=== PATIENT | male | born 1960 | race Caucasian/White ===

== ENCOUNTER 2017-05-17 22:30 | Observation (INO) ==
[2017-05-17] MEDS ORDERED: 0.9 % Sodium Chloride 1,000 ML IVC ONE (22:37)
--- NOTE | 2017-05-17 22:49 | Emergency Department Note ---
Disposition Clinical Impression: Elevated serum creatinine Episode of syncope Qualifiers: Syncope type: unspecified Qualified Code(s): R55 - Syncope and collapse Hypotension Qualifiers: Hypotension type: unspecified hypotension type Qualified Code(s): I95.9 - Hypotension, unspecified Disposition: Admitted As Inpatient Condition: Good Referrals: Hazel Otero CNP [Primary Care Provider] - Forms: ED Satisfaction Letter Syncope HPI - General Chief Complaint: ED Syncope Stated Complaint: Passed Out Time Seen by Provider: 05/17/17 22:37 Source: patient, EMS Mode of arrival: EMS Limitations: no limitations Nursing Notes Reviewed: Yes Vital Signs Reviewed: Yes - History of Present Illness HPI Narrative: 56-year-old male history of diabetes who presents to the ER via EMS after syncopal episode. Patient states that he was active throughout the day at home getting prepared for a [employer] constitution party at his house. He states he did have a couple drinks but nothing significant. He states that he was outside and as he walked inside and it was home to make something to eat that he lost consciousness. He states that he did feel dizzy and lightheaded prior to the episode. Family reports they witnessed the event and that he went unresponsive and fell to the floor. They state that he was breathing but then did appear blue. No CPR was performed as the patient had a pulse. They state he came to and about a minute. He stated he was dazed after the event. No seizure-like activity noted. He states that he did have one episode where he fainted over the summer but attributed that to being outside all day in the sun. No history of syncopal episode workup. No history of cardiac disease. No other complaints. Pt Subjective Complaint: loss of consciousness Onset (ago): Just [employer] Number of episodes: 1 Duration: minutes(s) (1) Prodromal Symptoms: lightheaded Witnessed: yes - by other Context: during exertion Injuries Sustained Associated with Event: none Current Symptoms: back to baseline History: previous syncopal episode (Once this summer) Treatments prior to arrival: none Associated trauma secondary to event: No - Related Data Home Medications Medication Instructions Recorded Confirmed Metformin 01/13/16 Previous Rx's Medication Instructions Recorded Mupirocin [Bactroban Oint] 1 appl TP BID #1 tube 01/13/16 Sulfamethoxazole/Trimeth DS 1 each PO BID #14 tablet 01/13/16 [Bactrim DS] Allergies Allergy/AdvReac Type Severity Reaction Status Date / Time No Known Allergies Allergy Verified 01/13/16 14:27 All systems ED: reviewed and negative except as stated. Cardiovascular: Denies: chest pain, palpitations Respiratory: Denies: cough, dyspnea Gastrointestinal: Denies: abdominal pain, nausea, vomiting, diarrhea Musculoskeletal: Denies: neck pain Neurological: Denies: headache, numbness, paresthesias Past Medical History - Past Medical History Attestation: Yes The following information was validated with the patient. Source: patient Medical history: Reports: diabetes Surgical history: Reports: non-contributory Psychiatric history: Reports: no psych history - Social History Smoking Status: Never smoker Smokeless Tobacco Status: No Alcohol use: Reports: occasionally Drug use: Reports: marijuana Physical Exam - General Limitations: no limitations General appearance: alert, in no apparent distress - Head Head exam: atraumatic, normocephalic, normal inspection - Eye Eye exam: Present: normal appearance, EOMI - ENT ENT exam: normal exam - Neck Neck exam: Present: normal inspection, full ROM. Absent: tenderness - Chest Chest inspection: Present: normal inspection, symmetric chest wall rise - Respiratory Respiratory exam: Present: normal lung sounds bilaterally - Cardiovascular Cardiovascular exam: Present: regular rate, normal rhythm, normal heart sounds - Abdominal Exam Abdominal exam: Present: soft, Non-Tender. Absent: tenderness, distention, rigidity - Extremities Exam Extremities exam: Present: normal inspection, full ROM - Expanded Upper Extremity Exam Shoulder exam: Present: normal inspection, full ROM Arm exam: Present: normal inspection, full ROM Elbow exam: Present: normal inspection, full ROM Forearm/Wrist exam: Present: normal inspection, full ROM Hand exam: Present: normal inspection, full ROM Vascular exam: Normal: radial pulse - Expanded Lower Extremity Exam Hip/Pelvis exam: Present: normal inspection, full ROM Upper leg exam: Present: normal inspection, full ROM Knee exam: Present: normal inspection, full ROM Lower leg exam: Present: normal inspection, full ROM Ankle exam: Present: normal inspection, full ROM Foot/toe exam: Present: normal inspection, full ROM Neurovascular/Tendon exam: Absent: motor deficit, sensory deficit - Neurological Exam Neurological exam: Present: alert, CN II-XII intact. Absent: motor sensory deficit - Expanded Neurological Exam Speech: Present: fluid speech Cranial nerves: EOM function (II, III, IV, ): Normal, facial sensation (V): Normal, spinal accessory function (XI): Normal, tongue deviation (XII): Normal Motor strength - LUE: 5/5 Motor strength - RUE: 5/5 Motor strength - LLE: 5/5 Motor strength - RLE: 5/5 Sensory exam upper extremity: light touch: Normal Sensory exam lower extremity: light touch: Normal Coma Scale Eye Opening: Spontaneous Coma Scale Motor Response: Obeys Commands Coma Scale Verbal Response: Oriented Coma Scale Total: 15 - Psychiatric Psychiatric exam: Present: normal affect, normal mood - Skin Skin exam: Present: warm, dry, intact, normal color Course Course Narrative: Patient seen and examined. He was hypotensive in route with his first blood pressure here of 90 systolic. He is asymptomatic at this time and has returned to baseline. We will obtain a CT of his head as well as an EKG, chest x-ray as well as labs including troponin. He will require admission for syncopal workup. - Reevaluation(s) Reevaluation #1: I discussed results of imaging and lab work with patient and family. He is currently normotensive. He is agreeable to staying in the hospital. Vital Signs Temperature 97.4 F L 05/17/17 22:32 Pulse Rate 72 05/17/17 22:32 Respiratory Rate 18 05/17/17 22:32 Blood Pressure 93/58 05/17/17 22:32 O2 Sat by Pulse Oximetry 94 05/17/17 22:32 Temperature 97.4 F L 05/17/17 22:32 Pulse Rate 78 05/17/17 22:41 Respiratory Rate 18 05/17/17 22:41 Blood Pressure 101/70 05/17/17 22:41 O2 Sat by Pulse Oximetry 98 05/17/17 22:41 Oxygen Delivery Oxygen Delivery Room Air Syncope - MDM Narrative Medical decision making narrative: 56-year-old male presents to the ER with a chief complaint of a syncopal episode. Reports he was dizzy and lightheaded then lost consciousness. Family reports that he was unconscious for roughly 1 minute. No seizure-like activity. States he had an episode similar to this over the summer but was not evaluated. He has no history of cardiac disease. No history of DVT or PE. He was back to baseline once he arrived. He has been noted to be hypotensive prior to arrival as well as here. He is not on any antihypertensive medications. His EKG demonstrates no ischemic findings. Head CT and chest x- ray are unremarkable. Initial troponin within normal limits. We will admit the patient for evaluation for syncopal episode. - Lab Data Lab results reviewed: Yes I reviewed the patient's lab results. Result diagrams: 05/17/17 22:41 05/17/17 22:41 Lab Results 05/17/17 05/17/17 05/17/17 Range/Units 22:41 22:41 22:41 WBC 9.3 (4.3-11.1) K/mcL RBC 4.54 (4.19-5.50) M/mcL Hgb 14.1 (12.9-16.9) g/dL Hct 40.0 (37.5-50.1) % MCV 88.1 (83.0-100.0) fL MCH 31.1 (28.0-33.3) pg MCHC 35.3 (31.6-35.5) g/dL RDW 12.3 (11.5-14.5) % Plt Count 262 (140-400) K/mcL MPV 8.9 L (9.4-12.4) fL Immature Gran % 0.3 (0-4) % Seg Neutrophils % 67.4 % Lymphocytes % 24.1 % Monocytes % 7.1 % Eosinophils % 0.6 % Basophils % 0.5 % Neutrophils # 6.3 (1.6-8.9) K/mcL Lymphocytes # 2.2 (0.6-4.6) K/mcL Monocytes # 0.7 (0.0-1.3) K/mcL Eosinophils # 0.1 (0.0-0.6) K/mcL Basophils # 0.1 (0.0-0.2) K/mcL Sodium 140 (136-145) mEq/L Potassium 3.7 (3.5-4.5) mEq/L Chloride 103 (98-109) mEq/L Carbon Dioxide 23 (19-29) mEq/L BUN 22 (8-26) mg/dL Creatinine 1.44 H (0.72-1.25) mg/dL Est GFR ( Amer) > 60 (> 60) Est GFR (Non-Af Amer) 50 L (> 60) BUN/Creatinine Ratio 15 (6-26) Glucose 259 H (70-99) mg/dL Calculated Osmolality 302 H (280-300) Calcium 9.9 (8.6-10.8) mg/dL Troponin I 0.01 (0-0.03) ng/mL - Radiology Data Radiology results reviewed: Yes I reviewed the patient's radiology results. Chest X-Ray 05/17/17 22:37 IMPRESSION: No acute cardiopulmonary disease. D/ / Uriel Gutierrez MD / Uriel Gutierrez MD Interpreting Provider: Uriel Gutierrez MD Head CT 05/17/17 22:38 IMPRESSION: No acute intracranial abnormality. D/ / Chas Merino MD / Chas Merino MD Interpreting Provider: Chas Merino MD - EKG Data EKG attestation: Yes I reviewed and interpreted this EKG. EKG results narrative: EKG demonstrates sinus rhythm with first-degree AV block with a rate of 79 bpm. Prolonged IA interval of 215. Other intervals normal. Normal R-wave progression. T-wave inversion in lead 3. No gross ST elevations or depressions. No acute ischemic findings. No previous EKG for comparison. S.B.A.R. - S.B.A.RFlavia Situation: Demographics, MOA Background: Presenting Complaint, Relevant PMH, Meds, & Allergies Assessment: Vital Signs, Course and respsone to treatment, Exam Concerns, Patient/Family Expectation, Pertinant Lab Results, Outstanding Labs Recommendation: Barrier(s) to disposition, Recommendation based on pending studies, treatments, or consults S.B.A.RFlavia Report Given to: Dr. Ribera SFlaviaBFlaviaAYayo Repor Time: 01:12 Attestation Statement - Attestation Attestation: I examined this patient and my medical decision-making was reviewed with the Resident Physician. I agree with the documented findings, disposition and treatment plan as described except to the extent set forth below. Patient to ED with a syncopal episode. Patient was having a constitution party tonight. It was stabbing a couple of years. He had a syncopal episode on the kitchen floor. They state he was blue and barely breathing. Patient has recovered on arrival here. Noted to be hypotensive by medics. Exam shows an awake and alert in hemotympanum stable. Heart regular lungs clear. Plan. Unclear the cause of the patient's hypertension. He has been eating and drinking normally. Only had a couple of beers. No fever. Denies any chest or abdominal pain. Cardiac workup and likely observation.
[2017-05-17 22:50] LABS: Basophils # 0.1 K/mcL (0.0-0.2); Basophils % 0.5 %; Eosinophils # 0.1 K/mcL (0.0-0.6); Eosinophils % 0.6 %; Hemoglobin 14.1 g/dL (12.9-16.9); Immature Granulocytes % 0.3 % (0-4); Lymphocytes # 2.2 K/mcL (0.6-4.6); Lymphocytes % 24.1 %; Mean Corpuscular HGB Conc 35.3 g/dL (31.6-35.5); Mean Corpuscular Hemoglobin 31.1 pg (28.0-33.3); Mean Corpuscular Volume 88.1 fL (83.0-100.0); Mean Platelet Volume 8.9 fL (9.4-12.4); Monocytes # 0.7 K/mcL (0.0-1.3); Monocytes % 7.1 %; Neutrophils # 6.3 K/mcL (1.6-8.9); Platelet Count 262 K/mcL (140-400); Red Blood Count 4.54 M/mcL (4.19-5.50); Red Cell Distribution Width 12.3 % (11.5-14.5); Segmented Neutrophils % 67.4 %
[2017-05-17 23:03] LABS: BUN/Creatinine Ratio 15 (6-26); Blood Urea Nitrogen 22 mg/dL (8-26); Calcium 9.9 mg/dL (8.6-10.8); Carbon Dioxide 23 mEq/L (19-29); Chloride 103 mEq/L (98-109); Glucose 259 mg/dL (70-99); Osmolality,Calculated 302 (280-300); Potassium 3.7 mEq/L (3.5-4.5); Sodium 140 mEq/L (136-145); eGFR For African Americans > 60 (> 60); eGFR For Non-African Americans 50 (> 60)
[2017-05-18] MEDS ORDERED: *HR* HYDROcodone/Acet 5/325 mg TABLET PO PRN (01:40)
[2017-05-18] MEDS ORDERED: Naloxone 0.4 MG/ML INJ IVP PRN (01:40)
[2017-05-18] MEDS ORDERED: *HR* Promethazine 25 MG/ML VIAL IVP PRN (01:40)
[2017-05-18] MEDS ORDERED: Acetaminophen 325 MG TABLET PO PRN (01:40)
[2017-05-18] MEDS ORDERED: *HR* Morphine 2 MG/ML SYRINGE IVP PRN (01:40)
[2017-05-18] MEDS ORDERED: Ondansetron 4 MG/2 ML VIAL IVP PRN (01:40)
[2017-05-18] MEDS ORDERED: MOM Conc 10 ML UD.LIQ PO PRN (01:40)
[2017-05-18] MEDS ORDERED: *HR* Dextrose 50 % in Water (Syg) 50 ML SYRINGE IVP PRN (01:43)
[2017-05-18] MEDS ORDERED: Dextrose Gel 15 GM PO PRN ×2 (01:43)
[2017-05-18] MEDS ORDERED: D5% in Water 1,000 ML IVC PRN (01:43)
[2017-05-18] MEDS ORDERED: 0.9 % Sodium Chloride 1,000 ML IVC SCH (01:45)
[2017-05-18 02:28] LABS: Hemoglobin A1C 8.1 %
--- NOTE | 2017-05-18 02:29 | Internal Med History&Physical ---
Date of Encounter: 05/18/17 Time of Encounter: 02:00 Assessment and Plan (1) Episode of syncope Current visit: Yes Status: Acute Will place the pt into Tele for observation Pt's Syncope seems to be more like vasovagal reaction / ortho static however still need to r/o ACS vs Arrhythmia will place the pt on radiation monitor check serial troponin so far negative trop will start ASA will get 2 D echo and Carotid Doppler in AM Will check FLP in AM Will check Ortho stat vital Started on IV fluids Qualifiers: Syncope type: unspecified Qualified Code(s): R55 - Syncope and collapse (2) DM2 (diabetes mellitus, type 2) Current visit: Yes Status: Chronic will check HbA1C hold metformin due to LILIAM placed him on ISS Qualifiers: Qualified Code(s): E11.9 - Type 2 diabetes mellitus without complications (3) LILIAM (acute kidney injury) Current visit: Yes Status: Acute Due to dehydration started him on IV fluids cont monitoring Internal Medicine - H&P: HPI Chief complaint: Syncope Admitted From: Emergency Dept Plans for Post Hospital Care: Home History of present illness: Mr. Ortiz is a 56 year old male history of diabetes who presents to the ER via EMS after syncopal episode at home while he was at [employer]. He did mention he had a couple of beer in the evening aroung 4 PM and 2 more at night with a shot during the [employer] party. He also mentioned he did not eat anything all day long. He states that he was outside and as he walked inside and it was home to make something to eat then he lost consciousness and had a fall. He states that he did feel dizzy and lightheaded prior to the episode. Family reports they witnessed the event and that he went unresponsive and fell to the floor. They state that he was breathing but then did appear blue. No CPR was performed as the patient had a pulse. They state he came to and about a minute. He stated he was dazed after the event. No seizure-like activity noted. He states that he did have one episode where he fainted over the summer but attributed that to being outside all day in the sun. No history of syncopal episode workup. No history of cardiac disease. No other complaints. He denied any CP / SOB Past Med Surg Social Fam HX - Past Medical History Medical history: diabetes Psychiatric history: no psych history - Past Surgical History Surgical History: non-contributory - Social History Smoking Status: Never smoker Smokeless Tobacco Status: No Alcohol use: occasionally Drug use: marijuana - Family History Father Hx Family Cancer: Yes (bladder) Mother Hx Family Neurologic Disorders: Yes (cva) Internal Medicine - H&P: Meds metFORMIN [Glucophage] 1,000 mg PO BIDWM 01/13/16 [History] 3 Allergy/AdvReac Type Severity Reaction Status Date / Time No Known Allergies Allergy Verified 01/13/16 14:27 All Systems PM: A 10-system review of systems was performed and is negative for pertinent findings except as documented above in the HPI. Review of systems: All the systems are reviewed everything is benign except the systems and symptoms I mentioned in the history of present illness - Constitutional Vitals: Temp Pulse Resp BP Pulse Ox 97.4 F L 78 16 137/70 98 05/17/17 22:32 05/17/17 22:41 05/18/17 01:29 05/18/17 01:29 05/17/17 22:41 General appearance: Present: A&O X 3, no acute distress, answers questions appropriately - Head Head exam: Present: atraumatic, normal inspection - Respiratory Respiratory exam: Present: decreased breath sounds. Absent: rales, respiratory distress, rhonchi, wheezes - Cardiovascular Cardiovascular exam: Present: RRR, +S1, +S2. Absent: systolic murmur - GI/Abdominal GI/Abdominal exam: Present: normal bowel sounds, soft. Absent: distended, rebound, rigid, tenderness - Extremities Exam Extremities exam: Absent: calf tenderness, pedal edema, tenderness - Back Exam Back exam: Absent: CVA tenderness (L), CVA tenderness (R) - Neurological Exam Neurological exam: Present: alert, oriented X3, no focal deficits - Psychiatric Psychiatric exam: Present: normal affect, normal mood - Skin Skin exam: Present: dry, intact Internal Med - H&P Results - Labs CBC & Chem 7: 05/17/17 22:41 05/17/17 22:41
[2017-05-18 02:46] LABS: Basophils % 0.3 %; Eosinophils % 0.2 %; Hematocrit 37.6 % (37.5-50.1); Hemoglobin 13.2 g/dL (12.9-16.9); Immature Granulocytes % 0.3 % (0-4); Immature Platelets 1.4 % (1.1-6.1); Lymphocytes # 1.4 K/mcL (0.6-4.6); Lymphocytes % 11.5 %; Mean Corpuscular HGB Conc 35.1 g/dL (31.6-35.5); Mean Corpuscular Hemoglobin 31.2 pg (28.0-33.3); Mean Corpuscular Volume 88.9 fL (83.0-100.0); Mean Platelet Volume 8.8 fL (9.4-12.4); Monocytes # 0.8 K/mcL (0.0-1.3); Monocytes % 6.8 %; Neutrophils # 9.6 K/mcL (1.6-8.9); Platelet Count 262 K/mcL (140-400); Red Blood Count 4.23 M/mcL (4.19-5.50); Red Cell Distribution Width 12.5 % (11.5-14.5); Segmented Neutrophils % 80.9 %
[2017-05-18] MEDS ORDERED: Famotidine 20 MG TABLET PO SCH ×2 (02:51→09:00)
[2017-05-18 02:59] LABS: BUN/Creatinine Ratio 18 (6-26); Blood Urea Nitrogen 20 mg/dL (8-26); Calcium 9.2 mg/dL (8.6-10.8); Carbon Dioxide 24 mEq/L (19-29); Chloride 102 mEq/L (98-109); Chol/HDL Ratio 7.8 (0-4.9); Cholesterol 234 mg/dL (< 200); Glucose 280 mg/dL (70-99); HDL Cholesterol 30 mg/dL (40-59); LDL Cholesterol,Calculated 146 mg/dL (0-99); Magnesium 1.8 mg/dL (1.6-2.6); Osmolality,Calculated 299 (280-300); Potassium 4.2 mEq/L (3.5-4.5); Sodium 138 mEq/L (136-145); Triglycerides 292 mg/dL (< 150); eGFR For African Americans > 60 (> 60); eGFR For Non-African Americans > 60 (> 60)
--- NOTE | 2017-05-18 08:38 | Discharge Summary ---
Date of Encounter: 05/18/17 Time of Encounter: 08:35 - Discharge Diagnosis (1) Episode of syncope Priority: Primary Status: Acute Comments: Syncopal episode likely secondary to dehydration/vessel vagal episode Qualifiers: Syncope type: unspecified Qualified Code(s): R55 - Syncope and collapse (2) Dehydration Priority: Primary Status: Acute (3) Dyslipidemia Priority: Secondary Status: Acute (4) Elevated serum creatinine Priority: Secondary Status: Acute (5) Hypotension Priority: Secondary Status: Acute Qualifiers: Hypotension type: unspecified hypotension type Qualified Code(s): I95.9 - Hypotension, unspecified (6) DM2 (diabetes mellitus, type 2) Priority: Secondary Status: Chronic Qualifiers: Qualified Code(s): E11.9 - Type 2 diabetes mellitus without complications (7) LIILAM (acute kidney injury) Priority: Secondary Status: Acute Comments: Secondary to dehydration - Discharge Medications Prescriptions: Atorvastatin Calcium [Lipitor] 20 mg PO DAILY #30 tablet Home Medications: metFORMIN [Glucophage] 1,000 mg PO BIDWM 01/13/16 [History] Atorvastatin Calcium [Lipitor] 20 mg PO DAILY #30 tablet 05/18/17 [Rx] Allergies/Adverse Reactions: 3 Allergy/AdvReac Type Severity Reaction Status Date / Time No Known Allergies Allergy Verified 01/13/16 14:27 Procedures/tests Complete & Pending: Procedures Performed prior 72 hours Category Date Time Status EV echocardiogram Routine Y 05/18/17 08:34 Ordered Date of admission: 05/18/17 01:18 Primary care physician: Hazel Otero CNP - Patient Status Disposition: Home, Self-Care Condition: Good - Discharge Instructions Follow Up With: Hazel Otero CNP [Primary Care Provider] - Additional Instructions: Follow-up with primary care physician within the next 7 days to assess the need of a Holter. Start Lipitor for high cholesterol. Okay to resume metformin. Maintain good hydration. Avoid alcohol - Diet and Activity Activity: increase activity as tolerated Diet: diabetic diet Hospital course: Mr. Ortiz is a 56 year old male with a past medical history of diabetes not insulin-dependent who presented to the ER via EMS after syncopal episode at home while he was at [employer]. He did mention he had a couple of beers in the evening aroung 4 PM and 2 more at night with a shot during the [employer]. He also mentioned he did not eat anything all day long. He stated that he was outside and as he walked inside into his home to make something to eat, he lost consciousness and had a fall. He stated that he did feel dizzy and lightheaded prior to the episode. Family reported they witnessed the event and that he went unresponsive and fell to the floor. They stated that he was breathing but then did appear blue. No CPR was performed as the patient had a pulse. They stated he came to and about a minute. He stated he was dazed after the event. No seizure-like activity noted. He stated that he did have one episode where he fainted over the summer but attributed that to being outside all day in the sun. No history of syncopal episode workup. No history of cardiac disease. EKG is unremarkable, troponins are negative. Patient would have an echocardiogram prior to being released. Was encouraged to drink plenty of fluids. Triglycerides were 292 occult total cholesterol 234, hemoglobin A1c 8.1. During his hospitalization the patient received IV fluids his creatinine was 1.44 upon admission and decreased to 1.12 - Time Spent with Patient Total time spent providing and/or coordinating discharge services: Greater than 30 minutes (40 min) - Constitutional Vitals: Temp Pulse Resp BP Pulse Ox 97.9 F 76 18 132/74 97 05/18/17 07:29 05/18/17 08:01 05/18/17 07:29 05/18/17 08:01 05/18/17 07:29 General appearance: Present: A&O X 3, no acute distress, answers questions appropriately Exam: Right conjunctiva erythematous from prior surgery - Head Head exam: Present: atraumatic, normocephalic - Eye Eye exam: Present: PERRL, conjuntiva pink, sclera anicteric Pupils: Present: PERRL - Neck Neck exam general surgery: Present: supple, trachea midline. Absent: lymphadenopathy - Respiratory Respiratory exam: Present: CTAB. Absent: accessory muscle use, rales, rhonchi, wheezes - Cardiovascular Cardiovascular exam: Present: RRR, +S1, +S2. Absent: diastolic murmur, gallop, rubs, systolic murmur - GI/Abdominal GI/Abdominal exam: Present: normal bowel sounds, soft, no peritoneal signs. Absent: distended, tenderness - Extremities Exam Extremities exam: Present: warm, radial pulses palpable and symmetrical. Absent : calf tenderness, cyanotic, pedal edema - Neurological Exam Neurological exam: Present: CN II-XII intact, oriented X3, no focal deficits. Absent: pronater drift, facial droop, speech deficit - Skin Skin exam: Present: dry, intact
[2017-05-18] MEDS: Insulin LISPRO 300 UNITS/3 ML VIAL SQ SCH ×2 (08:53→12:52)
[2017-05-18 11:17] VITALS: BP 131/74
--- NOTE | 2017-05-19 20:04 | Electrocardiograph Report ---
[place] [id number] Test Date: 2017-05-17 Pat Name: Bean Ortiz Department: 103 Room: 3B Gender: M Appeals Assistant: HERMILA : 1960 Requested By: Joshua Felipe Order Number: [id number] Reading MD: Tim Cruz MD Measurements Intervals [place] Rate: 79 P: 37 [place]: 215 QRS: -16 QRSD: 86 T: 3 QT: 371 QTc: 405 Interpretive Statements SINUS RHYTHM WITH FIRST DEGREE AV BLOCK VOLTAGE CRITERIA FOR LVH Electronically Signed On 05-19-2017 20:03:10 EDT by Tim Cruz MD
== END 2017-05-18 14:50 | disposition home or self-care (01) ==
LOC: 3BNU 22:30 → EMEROO 22:30 → 3BNU 05-18 01:30
PROVIDERS: ADMIT Family Medicine; ATTEND Registered Nurse